=== PATIENT | female | born 1990 | race Caucasian/White ===

== ENCOUNTER 2020-05-22 16:22 | Outpatient (CLI) | payer MEDICAID, SELFPAY ==
[2020-05-22 16:58] LABS: Basophils % 0.2 %; Eosinophils # 0.1 10^3/uL (0.0-0.8); Eosinophils % 1.9 %; Hematocrit 39.6 % (37.0-47.0); Hemoglobin 11.7 g/dL (11.5-15.3); Lymphocytes # 1.5 10^3/uL (0.8-4.8); Lymphocytes % 35.4 %; Mean Corpuscular HGB Conc 29.5 g/dL (30.0-36.0); Mean Corpuscular Hemoglobin 25.4 pg (28.0-34.0); Mean Corpuscular Volume 86.1 fL (81-99); Mean Platelet Volume 11.6 fL (7.4-10.4); Monocytes # 0.4 10^3/uL (0.2-0.9); Monocytes % 9.6 %; Neutrophils % 52.7 %; Nucleated Red Blood Cells % 0 %; Platelet Count 294 10^3/cmm (130-400); Red Cell Distribution Width 15.5 % (12.1-15.1); White Blood Count 4.2 10^3/uL (4.0-10.0)
[2020-05-22 17:31] LABS: 25 Hydroxy Vitamin D 30 ng/mL (30-100); Alanine Aminotransferase 18 U/L (0-33); Albumin Level 4.9 g/dL (3.5-5.2); Alkaline Phosphatase 58 IU/L (35-105); Anion Gap 18.9 (5-19); Aspartate Amino Transferase 20 U/L (0-32); Blood Urea Nitrogen 8 mg/dL (6-20); Calcium 9.4 mg/dL (8.5-10.5); Carbon Dioxide 22 mmol/L (22-29); Chloride 102 mmol/L (98-107); Chol HDL Ratio 3.38 mg/dL (0.0-4.40); Cholesterol 196 mg/dL (0-200); Globulin 2.8 g/dL (1.3-4.6); Glomerular Filtration Rate 116.6 mL/min (90-130); Glucose 91 mg/dL (65-115); HDL Cholesterol 58 mg/dL (60-100); LDL Cholesterol Calculated 121 mg/dL (50-129); LDL HDL Ratio 2.09 RATIO (0.00-3.22); Osmolality Calculated 283 mOsm/kg (285-295); Potassium 3.9 mmol/L (3.5-5.1); Sodium 139 mmol/L (136-145); Total Bilirubin 0.4 mg/dL (0.15-1.2); Total Protein 7.7 g/dL (6.6-8.7); Triglycerides 84 mg/dL (0-150); Vitamin B12 177 pg/mL (232-1245)
[2020-05-22 18:12] LABS: Estmated Average Glucose 91; Hemoglobin A1C 4.8 % (4.0-6.0)
== END 2020-05-22 16:23 | disposition home or self-care (01) ==
LOC: LAB 16:25
PROVIDERS: Visit Provider Nurse Practitioner Family
DX: R53.83 Other fatigue (principal)
CPT/HCPCS: 80053; 80061; 82306; 82607; 83036; 84443; 85025

== ENCOUNTER → 2020-06-05 09:00 | Outpatient (BNVA) | payer MEDICAID, SELFPAY | PROVIDERS: Visit Provider Obstetrics & Gynecology | DX: N89.8 Other specified noninflammatory disorders of vagina (principal) | CPT/HCPCS: 87491; 87591; 87661 ==

== ENCOUNTER → 2020-06-19 08:05 | Outpatient (BNVA) | payer MEDICAID, SELFPAY | PROVIDERS: Visit Provider Obstetrics & Gynecology | DX: N94.10 Unspecified dyspareunia (principal); N85.4 Malposition of uterus; R10.2 Pelvic and perineal pain | CPT/HCPCS: 76830 ==

== ENCOUNTER 2021-01-03 10:47 | Outpatient (CLI) | payer MEDICAID, SELFPAY ==
--- NOTE | 2021-01-03 10:53 | MM_ITS ---
WS: [id number] BILATERAL SCREENING DIGITAL MAMMOGRAM WITH CAD HISTORY: SCREENING COMPARISON: None available. Bilateral CC and MLO views submitted. Computer aided detection analyzed. Breast composition: There are scattered areas of fibroglandular density. No suspicious masses, microc alcifications or architectural distortion. MM/[id number] IMPRESSION: BI-RADS: 1-Negative FOLLOW UP: 1 Year Follow-up
== END 2021-01-03 10:48 | disposition home or self-care (01) ==
LOC: RADSHAW 10:48
PROVIDERS: PCP Nurse Practitioner Family; Visit Provider Nurse Practitioner Family
DX: Z12.31 Encounter for screening mammogram for malignant neoplasm of breast (principal)
CPT/HCPCS: 77067